=== PATIENT | female | born 1940 | race African-American/Black ===

== ENCOUNTER 2017-07-13 10:52 | Emergency (ER) | payer MEDICARE, OTHER ==
[2017-07-13] MEDS ORDERED: oxyCODONE TAB* 5 MG TAB PO ONE (11:42)
[2017-07-13] MEDS ORDERED: Labetalol IV* 5 MG/ML 20 ML VIAL IV PUSH ONE (11:46)
[2017-07-13 12:21] LABS: Urine Bilirubin Negative (Negative); Urine Glucose Negative (Negative); Urine Nitrite Negative (Negative)
[2017-07-13 12:27] LABS: Hematocrit 39 % (35-47); Hemoglobin 12.3 g/dl (12.0-16.0); Mean Corpuscular HGB Conc 31 g/dl (31-36); Mean Corpuscular Hemoglobin 24 pg (27-31); Mean Corpuscular Volume 75 fL (80-97); Mean Platelet Volume 9 um3 (7.4-10.4); Red Cell Distribution Width 15 % (10.5-15); White Blood Count 10.8 10^3/ul (3.5-10.8)
[2017-07-13 12:32] LABS: C Reactive Protein 54.27 mg/L (< 5.00); Magnesium 1.8 mg/dL (1.9-2.7)
[2017-07-13 12:35] LABS: Troponin I 0.03 ng/mL (<0.04)
[2017-07-13] MEDS ORDERED: hydrALAZINE TAB* 25 MG PO ONE (13:23)
--- NOTE | 2017-07-13 13:23 | RAD ---
Indication: Fall, metastatic breast cancer with hip pain. 2 views of the right femur demonstrate no obvious lytic lesions. No definite fracture is identified. IMPRESSION: No definite fracture of the right femur is noted.
[2017-07-13] MEDS ORDERED: Metoprolol Tartrate TAB* 50 mg PO ONE (13:24)
[2017-07-13] MEDS ORDERED: Gabapentin CAP(*) 300 MG PO ONE (13:24)
[2017-07-13] MEDS ORDERED: Magnesium Oxide TAB* 400 MG PO ONE (13:25)
--- NOTE | 2017-07-13 13:25 | RAD ---
Indication: Bilateral hip pain 2 views of the right hip and 2 views of left hip are reviewed. AP view of the pelvis was also reviewed. Pelvic ring is intact. No definite lytic lesions identified. Minimal degenerative changes are noted in both hips worse on the left than on the right. No definite fracture is identified. IMPRESSION: Mild degenerative changes of the hips slightly worse on the left than on the right. No fracture or lytic lesions are noted.
--- NOTE | 2017-07-13 13:27 | RAD ---
Indication: Pain. 2 falls today. Metastatic breast carcinoma. Comparison: February 25, 2010 chest radiograph and July 11, 2017 PET/CT. Technique: Upright AP and lateral chest radiographs. Report: Multiple bilateral pulmonary metastasis as documented on the July 11, 2017 PET/CT. No new pulmonary consolidation to suggest pneumonia. Negative for pleural effusion or pneumothorax. Mild cardiomegaly. Unremarkable central pulmonary vasculature. Negative for free air beneath the diaphragm. No fractures evident. IMPRESSION: 1. Bilateral pulmonary metastasis as previously documented. 2. No additional acute intrathoracic disease or traumatic injury evident.
[2017-07-13] MEDS ORDERED: fentaNYL PATCH 25 MCG/HR TRANSDERM ONE (13:48)
[2017-07-13 14:03] LABS: Albumin 3.6 g/dL (3.2-5.2); BUN/Creatinine Ratio 13.7 (8-20); Calcium 10.3 mg/dL (8.6-10.3); EGFR African American 73.6 (>60); EGFR Non-African American 57.2 (>60); Globulin 3.8 g/dL (2-4); Total Bilirubin 0.7 mg/dL (0.2-1.0); Total Protein 7.4 g/dL (6.4-8.9)
--- NOTE | 2017-07-13 15:28 | ED ---
Jhon Ladd Tiffany, scribed for Maci Hong MD on 07/13/17 at 1132 . Back Pain - HPI Summary HPI Summary: This patient is a 76 year old F presenting to [facility] accompanied by daughter with a chief complaint of back pain since last night. She rates the pain 5/10 in severity. Symptoms aggravated by nothing. Symptoms alleviated by nothing. Patient reports bilateral leg pain and abdominal pain. She says that her right leg hurts the most. The patient fell twice a few days ago from being transported to wheelchair from bed, after which both legs hurt. The patients daughter, Sage, delivered the rest of the HPI. The patient has not been to the ER since moving back to [place] last year. She currently lives at [facility]. She was recently diagnosed with cancer in her right breast with metastasis to her legs in October [address] Caban (oncologist). The daughter reports that the patient has not been sent to her medical appointments since being diagnosed with cancer. However, the patient did receive a PET scan on 07/11/17 at [facility]. The patient has a history of MS. The patient has not been reestablished with Dr. Campoverde, neurology, since moving back to [place]. She was given a prescription for a patch for pain in March 2017 but the daughter reports that [facility] never filled the prescription. The patient has been having leg pain for the past three weeks, which she has been expressing to her family members, calling family members in the middle of the night. The daughter suspects that the patient is having pain because [facility] is not giving the patient her medications. The patient does not have an indwelling catheter and does not do self catheterizations with her hx MS. She always wants to go to the bathroom but she cannot walk with her legs since she cannot move her legs. The patients daughter reports that Sage's two sons struggled to help the patient to the bathroom last night in [place] so she can't imagine that the nurses at the half-way are helping the patient to the bathroom when she needs to go. Because the half-way did not give the patient her BP medicine or oxycodone last night, the patient's daughter gave the patient those two medications while she had the pt at home in [place]. The patient woke up last night in extreme pain. The daughter is displeased with the half-way, but she is agreeable with the patient returning to [facility]. She would like the patient to be checked. The daughter requests a new prescription to be filled today for the pain patch. - History of Current Complaint Chief Complaint: Ga Stated Complaint: LEG PAIN Time Seen by Provider: 07/13/17 11:13 Hx Obtained From: Patient, Family/Design Technician - Daughter, Sage Onset/Duration: Gradual Onset - Several months, Lasting Weeks - 3 weeks, Still Present, Worse Since - Last night Onset/Duration: Started Days Ago, Traumatic - fell x 2 recently, Still Present Timing: Constant Back Pain Location: Is Diffuse Severity Initially: Moderate Severity Currently: Moderate Pain Intensity: 5 Pain Scale Used: 0-10 Numeric Character: Aching Aggravating Symptom(s): Nothing Alleviating Symptom(s): Nothing Associated Signs And Symptoms: Positive: Abdominal Pain, Other - Back pain, bilateral leg pain and abdominal pain - Allergies/Home Medications Allergies/Adverse Reactions: Allergies Allergy/AdvReac Type Severity Reaction Status Date / Time No Known Allergies Allergy Verified 07/13/17 10:55 Home Medications: Home Medications Acetaminophen [Acetaminophen Extra Stren] 1,000 mg PO Q12HR 07/13/17 [History Confirmed 07/13/17] Anastrozole (NF) [Arimidex (NF)] 1 mg PO DAILY 07/13/17 [History Confirmed 07/13] Artificial Tear OPHTH.OINT* [Lacrilube OINT*] 1 applic BOTH EYES BEDTIME [History Confirmed 07/13/17] Artificial Tears* 15 ML BTL [Polyvinyl Alcohol 1.4% OPTH*] 1 drop BOTH EYES TID 07/13/17 [History Confirmed 07/13/17] Aspirin EC Low Dose* [Ecotrin EC Low Dose 81 MG*] 81 mg PO DAILY 07/13/17 [ History Confirmed 07/13/17] Cholecalciferol [Vitamin D3] 50,000 unit PO MONTHLY 07/13/17 [History Confirmed 07/13/17] Cyanocobalamin INJ * [Vitamin B12 INJ *] 1,000 mcg IM MONTHLY 07/13/17 [History Confirmed 07/13/17] Gabapentin CAP(*) [Neurontin 300 CAP(*)] 300 mg PO TID 07/13/17 [History Confirmed 07/13/17] Magnesium Hydroxide LIQ* [Milk of Magnesia LIQ*] 30 ml PO DAILY PRN 07/13/17 [ History Confirmed 07/13/17] Memantine XR * [Namenda XR *] 7 mg PO DAILY 07/13/17 [History Confirmed 07/13/17 ] Metoprolol Tartrate TAB* [Lopressor TAB*] 50 mg PO BID 07/13/17 [History Confirmed 07/13/17] Morphine ORAL.CONC BULK BOT* [Roxanol ORAL.CONC Bottle*] 5 mg PO Q2HR PRN [History Confirmed 07/13/17] Ondansetron TAB* [Zofran 4 MG Tab*] 4 mg PO Q6H PRN 07/13/17 [History Confirmed 07/13/17] Senna/Docusate (NF) [Sennokot-S] 1 tab PO DAILY 07/13/17 [History Confirmed ] buPROPion SR TAB* [Wellbutrin SR TAB*] 100 mg PO BID 07/13/17 [History Confirmed 07/13/17] hydrALAZINE TAB* [Apresoline TAB*] 50 mg PO BID 07/13/17 [History Confirmed ] oxyCODONE/Acetamin 10/325(NF) [Percocet 10/325 (NF)] 1 tab PO Q6HR MDD 4 tabs [History Confirmed 07/13/17] PMH/Surg Hx/FS Hx/Imm Hx Previously Healthy: No - MS, metastatic breast CA, dementia Endocrine/Hematology History: Reports: Hx Diabetes GI History: Reports: Other GI Disorders - Frequent urinary tract infections Neurological History: Reports: Other Neuro Impairments/Disorders - MS - Cancer History Cancer Type, Location and Year: metastatic Breast cancer diagnosed in October 2016 - Surgical History Surgery Procedure, Year, and Place: none Infectious Disease History: No Infectious Disease History: Denies: Traveled Outside the [place] in Last 30 Days - Family History Known Family History: Positive: Other - daughter with cancer - Social History Lives: [facility] [place] Alcohol Use: None Hx Substance Use: No Substance Use Type: Reports: None Review of Systems Constitutional: Negative Cardiovascular: Negative Respiratory: Negative Positive: Abdominal Pain Positive: Arthralgia, Other - Back pain, bilateral leg pain Skin: Negative Neurological: Negative Psychological: Normal All Other Systems Reviewed And Are Negative: Yes Physical Exam Triage Information Reviewed: Yes Vital Signs On Initial Exam: Initial Vitals Temp Pulse Resp BP Pulse Ox 99.1 F 97 17 162/108 94 07/13/17 10:53 07/13/17 10:53 07/13/17 10:53 07/13/17 10:53 07/13/17 10:53 Vital Signs Reviewed: Yes Appearance: Positive: Well-Appearing - appears to be wearing a wig, Well- Nourished, Pain Distress Skin: Positive: Warm, Skin Color Reflects Adequate Perfusion, Other - Dimpling and irregular contour of nipple and right breast, also has mass on right breast ; no skin breakdown on her back Head/Face: Positive: Normal Head/Face Inspection Eyes: Positive: Conjunctiva Clear, Other: - opacification of iris of pupil of right eye that is old per family, pt has light perception vision in her right eye, left eye is PERRL ENT: Positive: Normal ENT inspection Neck: Positive: Supple, Nontender, No Lymphadenopathy Respiratory/Lung Sounds: Positive: Clear to Auscultation, Breath Sounds Present - Nromal, Other - No respiratory distress. Negative: Decreased Breath Sounds, Rales, Rhonchi, Subcutaneous Emphysema, Stridor, Tracheal Deviation, Wheezes, Unable to speak in full sentences, Fatigue Cardiovascular: Positive: Normal - No murmur, RRR, Pulses are Symmetrical in both Upper and Lower Extremities, Other - pulses normal, brisk capillary refill. Negative: Bradycardia, IRR, Murmur, Rub, Tachycardia, Leg Edema Left, Leg Edema Right Abdomen Description: Positive: Nontender, No Organomegaly, Soft. Negative: Bruit, CVA Tenderness (R), CVA Tenderness (L), Distended, Guarding, Hernia @, Hepatomegaly, McBurney's Point Tenderness, Peritoneal Signs, Pulsatile Mass, Splenomegaly Bowel Sounds: Positive: Present Musculoskeletal: Positive: Other - Tenderness in right thigh, back is without tenderness, good dorsiflexion and plantar flexion of her feet bilaterally, unable to lift either leg without assistance Neurological: Positive: Alert, Oriented to Person Place, Time, CN Intact II-III , Unable to Assess Gait, Facial Symmetry, Speech Normal, Other - Inability to lift right leg and left leg against gravity Psychiatric: Positive: Normal Diagnostics - Vital Signs Vital Signs Temp Pulse Resp BP Pulse Ox 07/13/17 10:53 99.1 F 97 17 162/108 94 - Laboratory Lab Results: Lab Results 07/13/17 07/13/17 07/13/17 Range/Units 12:00 12:09 12:09 WBC 10.8 (3.5-10.8) 10^3/ul RBC 5.20 (4.0-5.4) 10^6/ul Hgb 12.3 (12.0-16.0) g/dl Hct 39 (35-47) % MCV 75 L (80-97) fL MCH 24 L (27-31) pg MCHC 31 (31-36) g/dl RDW 15 (10.5-15) % Plt Count 288 (150-450) 10^3/ul MPV 9 (7.4-10.4) um3 Neut % (Auto) 80.0 (38-83) % Lymph % (Auto) 11.2 L (25-47) % Camp % (Auto) 6.9 (1-9) % Eos % (Auto) 1.5 (0-6) % Baso % (Auto) 0.4 (0-2) % Absolute Neuts (auto) 8.6 H (1.5-7.7) 10^3/ul Absolute Lymphs (auto) 1.2 (1.0-4.8) 10^3/ul Absolute Monos (auto) 0.7 (0-0.8) 10^3/ul Absolute Eos (auto) 0.2 (0-0.6) 10^3/ul Absolute Basos (auto) 0 (0-0.2) 10^3/ul Absolute Nucleated RBC 0 10^3/ul Nucleated RBC % 0 INR (Anticoag Therapy) (0.89-1.11) Sodium 139 (133-145) mmol/L Potassium 4.0 (3.5-5.0) mmol/L Chloride 104 (101-111) mmol/L Carbon Dioxide 28 (22-32) mmol/L Anion Gap 7 (2-11) mmol/L BUN 13 (6-24) mg/dL Creatinine 0.95 (0.51-0.95) mg/dL Est GFR ( Amer) 73.6 (>60) Est GFR (Non-Af Amer) 57.2 (>60) BUN/Creatinine Ratio 13.7 (8-20) Glucose 99 (70-100) mg/dL Lactic Acid (0.5-2.0) mmol/L Calcium 10.3 (8.6-10.3) mg/dL Magnesium 1.8 L (1.9-2.7) mg/dL Total Bilirubin 0.70 (0.2-1.0) mg/dL AST 14 (13-39) U/L ALT 11 (7-52) U/L Alkaline Phosphatase 81 (34-104) U/L Troponin I 0.03 (<0.04) ng/mL C-Reactive Protein 54.27 H (< 5.00) mg/L Total Protein 7.4 (6.4-8.9) g/dL Albumin 3.6 (3.2-5.2) g/dL Globulin 3.8 (2-4) g/dL Albumin/Globulin Ratio 0.9 L (1-3) Urine Color Straw Urine Appearance Clear Urine pH 7.0 (5-9) Ur Specific [place] 1.010 (1.010-1.030) Urine Protein Negative (Negative) Urine Ketones Negative (Negative) Urine Blood Negative (Negative) Urine Nitrate Negative (Negative) Urine Bilirubin Negative (Negative) Urine Urobilinogen Negative (Negative) Ur Leukocyte Esterase Negative (Negative) Urine Glucose Negative (Negative) 07/13/17 07/13/17 Range/Units 12:09 12:09 WBC (3.5-10.8) 10^3/ul RBC (4.0-5.4) 10^6/ul Hgb (12.0-16.0) g/dl Hct (35-47) % MCV (80-97) fL MCH (27-31) pg MCHC (31-36) g/dl RDW (10.5-15) % Plt Count (150-450) 10^3/ul MPV (7.4-10.4) um3 Neut % (Auto) (38-83) % Lymph % (Auto) (25-47) % Camp % (Auto) (1-9) % Eos % (Auto) (0-6) % Baso % (Auto) (0-2) % Absolute Neuts (auto) (1.5-7.7) 10^3/ul Absolute Lymphs (auto) (1.0-4.8) 10^3/ul Absolute Monos (auto) (0-0.8) 10^3/ul Absolute Eos (auto) (0-0.6) 10^3/ul Absolute Basos (auto) (0-0.2) 10^3/ul Absolute Nucleated RBC 10^3/ul Nucleated RBC % INR (Anticoag Therapy) 1.02 (0.89-1.11) Sodium (133-145) mmol/L Potassium (3.5-5.0) mmol/L Chloride (101-111) mmol/L Carbon Dioxide (22-32) mmol/L Anion Gap (2-11) mmol/L BUN (6-24) mg/dL Creatinine (0.51-0.95) mg/dL Est GFR ( Amer) (>60) Est GFR (Non-Af Amer) (>60) BUN/Creatinine Ratio (8-20) Glucose (70-100) mg/dL Lactic Acid 1.6 (0.5-2.0) mmol/L Calcium (8.6-10.3) mg/dL Magnesium (1.9-2.7) mg/dL Total Bilirubin (0.2-1.0) mg/dL AST (13-39) U/L ALT (7-52) U/L Alkaline Phosphatase (34-104) U/L Troponin I (<0.04) ng/mL C-Reactive Protein (< 5.00) mg/L Total Protein (6.4-8.9) g/dL Albumin (3.2-5.2) g/dL Globulin (2-4) g/dL Albumin/Globulin Ratio (1-3) Urine Color Urine Appearance Urine pH (5-9) Ur Specific [place] (1.010-1.030) Urine Protein (Negative) Urine Ketones (Negative) Urine Blood (Negative) Urine Nitrate (Negative) Urine Bilirubin (Negative) Urine Urobilinogen (Negative) Ur Leukocyte Esterase (Negative) Urine Glucose (Negative) Result Diagrams: 07/13/17 12:09 07/13/17 12:09 Lab Statement: Any lab studies that have been ordered have been reviewed, and results considered in the medical decision making process. - Radiology CXR Radiology Interpretation Completed By: Radiologist - 1. Bilateral pulmonary metastasis as previously documented. 2. No additional acute intrathoracic disease or traumatic injury evident. ED physician has reviewed this radiology report and agrees. Hip Radiology Interpretation Completed By: Radiologist - Mild degenerative changes of the hips slightly worse on the left than on the right. No fracture or lytic lesions are noted. ED physician has reviewed this radiology report and agrees. Femur Radiology Interpretation Completed By: Radiologist - No definite fracture of the right femur is noted. ED physician has reviewed this radiology report and agrees. - EKG 1208 Cardiac Rate: NL EKG Rhythm: Sinus Rhythm - [address] Segment: Non-Specific Ectopy: None EKG Interpretation: Nml AVIVCT, Nml QTC, Nml axis 6, nonspecific ST-wave changes , non-STEMI Re-Evaluation - Re-Evaluation First Eval Re-Evaluation Time: 13:30 Change: Improved Comment: The patients pain is controlled. Her BP is 150/76. I discussed lab results and XRAY results with the daughter and patient. They request a prescription for a fentanyl patch. Oncology will be notified. The daughter and patient are agreeable to discharge. Second Eval Re-Evaluation Time: 15:25 Change: Unchanged Comment: The patient's pain is controlled. We discussed the discharge plan. The patient and her daughter are agreeable to the plan. Back Pain Course/Dx - Course Assessment/Plan: Bloodwork was drawn. EKG and XRAYS were taken. The patient was given a copy of her lab and XRAY results. The EKG was normal. The catheterized urine sample did not show any infection. The xrays did not show any fractures or bone metastases. We gave medications for her blood pressure: labetalol 10mg IV, hydralazine 50mg, metoprolol tartrate 50mg and her blood pressure came down to 150/76. We gave medications for pain: oxycodone 5mg and gabapentin 300mg and we applied a fentanyl patch 25 mcg/hr that will be changed every 3 days. I spoke with Gege Loving NP who stated she will prescribe the fentanyl patch 25 mcg/hr on Sunday07/16/17. We did contact Dr. Hinojosa who is covering for Dr. Caban and he will let Dr. Caban know that the patient was in the ER and started on the pain patch. The patient and her daughter are agreeable with this plan. - Diagnoses Differential Diagnosis/HQI/PQRI: Positive: Aneurysm, Arthritis, Compressive Cord Syndrome, Fracture, Herniated Disc, Neoplasm, Strain, Sprain Provider Diagnoses: Neoplasm related pain (acute) (chronic), Hypomagnesemia - Provider Notifications Discussed Care Of Patient With: Aubrey Hinojosa Time Discussed With Above Provider: 13:44 Instructed by Provider To: Other - Dr. Hinojosa, oncology, was made aware of the patient's situation. He will make sure that Dr. Caban, oncology, is updated. At 14:44, I consulted Jennifer charge nurse, Flavia, to find out the doctor inventory control clerk to request a prescription for fentanyl patch. At 14:51, I consulted the [employer]CH[employer]ER inventory control clerk for Gege Rodriguez, who will take care of the order for the fentanyl patch. Discharge - Discharge Plan Condition: Stable Disposition: HOME Prescriptions: fentaNYL PATCH 25 MCG/HR* [Duragesic PATCH 25 Mcg/Hr*] 25 mcg TRANSDERM Q72H # 10 patch MDD 1/3 patch Patient Education Materials: Chronic Pain (ED), Chronic Hypertension (ED) Referrals: No Primary Care Phys,NOPCP [Primary Care Provider] - Pratima Campoverde MD [Medical Doctor] - As Soon As Possible ([facility] to restablish care for MS after relocating to [place]) Additional Instructions: Bloodwork was drawn. EKG and XRAYS were taken. You have been given a copy of your lab and XRAY results. The catheterized urine sample did not show any infection. The xrays did not show any fractures or bone metastases. We gave medications for her blood pressure: labetalol 10mg IV, hydralazine 50mg , metoprolol tartrate 50mg and her blood pressure came down to 150/76. We gave medications for pain: oxycodone 5mg and gabapentin 300mg and we applied a fentanyl patch 25 mcg/hr that will be changed every 3 days. I spoke with Gege Loving, ABRIL who stated she will prescribe the fentanyl patch 25 mcg/hr on Sunday07/16/17. We did contact Dr. Hinojosa who is covering for Dr. Caban and he will let Dr. Caban know that you were in the ER and started on the pain patch. Return to the ER if any new or worsening symptoms. The documentation as recorded by the Jhon morales Tiffany accurately reflects the service I personally performed and the decisions made by me, Maci Hong MD.
[2017-07-13 16:20] VITALS: BP 171/74
== END 2017-07-13 16:24 | disposition home or self-care (01) ==
LOC: ED 10:52
DX: G89.3 Neoplasm related pain (acute) (chronic) (principal); M54.9 Dorsalgia, unspecified; E83.42 Hypomagnesemia; M25.552 Pain in left hip; M25.551 Pain in right hip; G35 Multiple sclerosis; E11.9 Type 2 diabetes mellitus without complications; C50.919 Malignant neoplasm of unspecified site of unspecified female breast
CPT/HCPCS: 36415; 71020; 73523; 80053; 81003; 83605; 83735; 84484; 85025; 85610; 86140; 93005; 96374; 99283; A9270-GY